=== PATIENT | female | born 1950 | race Caucasian/White ===

== ENCOUNTER 2024-10-28 17:53 | Emergency (ER) | payer OTHER ==
[~2024-10-28] VITALS: Ht 162.6 cm; Wt 64.0 kg
[2024-10-28 17:54] VITALS: BP 140/90; PULSE 90; RESP 16; TEMP 36.9; O2SAT 98
== END 2024-10-28 18:50 | disposition left against medical advice (07) ==
LOC: ER 17:53
DX: M54.50 Low back pain, unspecified (principal); Z53.21 Procedure and treatment not carried out due to patient leaving prior to being seen by health care provider

== ENCOUNTER 2025-04-20 10:32 | Emergency (ER) | payer OTHER ==
[~2025-04-20] VITALS: Ht 165.1 cm; Wt 60.0 kg
[2025-04-20 10:33] VITALS: BP 113/72; PULSE 62; RESP 18; TEMP 36.8; O2SAT 97
== END 2025-04-20 14:36 | disposition left against medical advice (07) ==
LOC: ER 10:36
DX: S09.90XA Unspecified injury of head, initial encounter (principal); M54.50 Low back pain, unspecified; I10 Essential (primary) hypertension; E03.9 Hypothyroidism, unspecified; W01.10XA Fall on same level from slipping, tripping and stumbling with subsequent striking against unspecified object, initial encounter; Y93.89 Activity, other specified; Y92.89 Other specified places as the place of occurrence of the external cause; Y99.8 Other external cause status
CPT/HCPCS: 99283